=== PATIENT | female | born 1980 | race Native Hawaiian/Other Pacific Islander ===

== ENCOUNTER 2018-04-21 06:02 | Emergency (ER) | payer OTHER ==
[~2018-04-21] VITALS: Ht 172.7 cm; Wt 83.5 kg
[2018-04-21 06:06] VITALS: TEMP 98.4
[2018-04-21 07:30] VITALS: BP 112/75
== END 2018-04-21 07:30 | disposition home or self-care (01) ==
LOC: ED 06:02
DX: S60.211A Contusion of right wrist, initial encounter (principal); S60.221A Contusion of right hand, initial encounter; W22.09XA Striking against other stationary object, initial encounter; Y92.9 Unspecified place or not applicable
CPT/HCPCS: 99283

== ENCOUNTER 2020-02-16 20:53 | Emergency (ER) | payer OTHER ==
[~2020-02-16] VITALS: Ht 172.7 cm; Wt 88.0 kg
[2020-02-16 22:45] LABS: PLATELET COUNT 281 K/uL (152-353)
[2020-02-16 22:49] LABS: POTASSIUM 3.8 mmol/L (3.6-5.2)
[2020-02-16 23:45] VITALS: BP 115/64; TEMP 98.4
== END 2020-02-16 23:45 | disposition home or self-care (01) ==
LOC: ED 20:53
PROVIDERS: Emergency Medicine Emergency Medical Services
DX: R11.2 Nausea with vomiting, unspecified (principal); R19.7 Diarrhea, unspecified
CPT/HCPCS: 36415; 80053; 81000; 81025; 83690; 85027; 96360; 96375; 99284; J1885; J2405